=== PATIENT | female | born 1985 | race Caucasian/White ===

== ENCOUNTER 2024-10-30 14:02 | Emergency (ER) | payer BC, SELFPAY ==
[2024-10-30 14:06] VITALS: BP 108/71
--- NOTE | 2024-10-30 14:10 | ED.GENMED ---
History of Present Illness
<Marsha Davis CERTIFIED PROSTHETIST VICE PRESIDENT - Last Filed: 10/30/24 16:33>
General
Chief Complaint: Fever
Source: patient
Exam Limitations: none
Time Seen by Provider: 10/30/24 14:09
Nursing documentation reviewed up to this point in time: agreed with
History of Present Illness
History of Present Illness:
39 yo female 6 days post w normal uncomplicated vaginal delivery presents for fever/chills. Started 5 days ago she developed fever and chills and body aches which have been intermittent since, her last Motrin was at 10 AM today. Temp max was
99.7, main concern was the intermittent rigors and diaphoresis.
Pt tested positive for Covid 4 days ago after her son had Covid like symptoms (but never tested).
Pt denies vomiting, has felt nauseous intermittently. Has had a dry cough. Denies SOB, CP. Has mild 2/10 lower abdominal discomfort.
Has had normal vaginal bleeding, no malodorous discharge.
Denies UTI S & S
Last BM 4 days ago, does not feel constipated.
Had engorgement of breasts yesterday and thought she may have mastitis (she's had it in the past) but much better today. No redness or streaking of skin of breasts
Pt went to [place] where she delivered but the ED wait was too long. Had normal labs there per pt and (ED doctor)
Past History
<Marsha Davis CERTIFIED PROSTHETIST VICE PRESIDENT - Last Filed: 10/30/24 16:33>
Past History
ED Past Medical History: None
ED Past Surgical History: Other (wisdom teeth)
Social History
Tobacco: Non-smoker
Alcohol: None
Personal:
Living: with family
Review of Systems
<aMrsha Davis, CERTIFIED PROSTHETIST VICE PRESIDENT - Last Filed: 10/30/24 16:33>
Review of Systems
Allergies reviewed?: Yes
All Other Systems: ROS reviewed and negative except as documented in HPI and ROS
Phy Exam
<Marsha Davis, CERTIFIED PROSTHETIST VICE PRESIDENT - Last Filed: 10/30/24 16:33>
Physical Exam
Physical Exam:
GENERAL: No acute distress. A&Ox3.
CONSTITUTIONAL: Afebrile.
EYES: clear, conjunctivae normal
ENMT: moist mucus membranes, Pharynx nl
RESPIRATORY: Regular respirations, nonlabored, lungs clear.
CARDIOVASCULAR: Regular rate and rhythm, no murmurs, no rubs.
GI: Soft, nontender, normal BS
MUSCULOSKELETAL: Moves with ease. Well perfused.
SKIN: Warm, moist all, pink
Breasts: normal color, no redness, warmth, tenderness or abnormal swelling
PSYCH: Normal mood and affect. Well kept, interactive and appropriate
NEUROLOGIC: Awake, alert and oriented. No focal neurological deficits he works as a she has fever and chills
Course
<Marsha Davis, CERTIFIED PROSTHETIST VICE PRESIDENT - Last Filed: 10/30/24 16:33>
Orders/Labs/Results
Orders:
Orders
10/30/24 14:09
CONSULT Urgent
10/30/24 14:15
IV Insert/Care/Rem.- Treatment PRN
10/30/24 14:16
0.9% Sodium Chloride 1000 ml [Nss] 1,000 ml IV BOLUS
10/30/24 14:26
Complete Blood Count/With Diff Urgent
Comprehensive Metabolic Panel Urgent
Lactic Acid Q4H
Comment: CANCEL 2nd LACTIC ACID IF 1st LACTIC ACID IS LESS THAN 2
Blood Culture Q30M
TASHI Source: Blood/Venous
Specimen Description:
10/30/24 14:30
Urinalysis Reflex To Culture Urgent
Date Specimen was Collected: 10/30/24
Time Specimen was Collected: 14:27
Urine Microscopic Reflex Cult Urgent
Urine Culture Urgent
TASHI Source: U
Specimen Description:
Date Specimen was Collected: 10/30/24
Time Specimen was Collected: 14:27
10/30/24 14:38
COVID-19 Antigen Urgent
Source: Nasal Swab
Influenza A+B Rapid Molecular Urgent
TASHI Source: Nasal Swab
Specimen Description:
10/30/24 15:15
CR Chest - 2 Views Urgent
Comment:
Reason For Exam: post partem fever/chills
10/30/24 15:54
Add On- LAB Urgent
Tests Added?: urine culture
Acetaminophen [Tylenol] 650 mg PO NOW STA
10/30/24 16:05
Amoxicillin 875 mg/Clav 125 mg [Augmentin 875 mg/125 mg] 1 tablet PO NOW STA
10/30/24 16:10
0.9% Sodium Chloride 1000 ml [Nss] 1,000 ml IV BOLUS
10/30/24 16:11
CefTRIAXone [Rocephin] 1,000 mg IV NOW STA
10/30/24 16:25
Blood Culture Q30M
TASHI Source: Blood/Venous
Specimen Description:
Abnormal Lab Results
10/30/24 10/30/24 10/30/24
14:26 14:30 14:38
RBC 3.60 L 10^6/uL
(4.20-5.40)
Hgb 10.7 L g/dL
(12.0-16.0)
Hct 32.5 L %
(37.0-47.0)
MCHC 32.9 L g/dL
(33.0-37.0)
MPV 10.7 H fL
(7.4-10.4)
Abs Immat Gran (auto) 0.1 H 10^3/uL
(0-0.05)
Absolute Neuts (auto) 8.0 H 10^3/uL
(1.4-6.5)
Absolute Lymphs (auto) 0.6 L 10^3/uL
(1.2-3.4)
Absolute Monos (auto) 0.9 H 10^3/uL
(0.1-0.6)
Immature Gran % 0.6 H %
(0-0.5)
Neutrophils % 83.5 H %
(42.2-75.2)
Lymphocytes % 6.2 L %
(20.5-51.1)
Monocytes % 9.4 H %
(1.7-9.3)
Chloride 109 H mmol/L
(98-107)
Glucose 127 H mg/dl
(70-99)
Total Protein 6.2 L g/dl
(6.3-8.2)
Albumin 3.4 L g/dl
(3.5-5.0)
Urine Ketones 3+ A
(Negative)
Ur Occult Blood Reflex 4+ A
(Negative)
Leukocyte Esterase Rfl 3+ A
(Negative)
Urine WBC (Reflex) 30-40 A /HPF
(0-5)
Urine Bacteria (Reflex) Few A
(Negative)
Urine Albumin (Reflex) 1+ A
(Neg - Trace)
SARS-CoV-2 Antigen Positive A
(Negative)
10/30/24 14:26
10/30/24 14:26
Vital Signs
Initial and Last Documented VS:
Initial Vital Signs
Temp Pulse Resp BP Pulse Ox
97.8 F 101 18 108/71 97
10/30/24 14:06 10/30/24 14:06 10/30/24 14:06 10/30/24 14:06 10/30/24 14:06
Last Documented Vital Signs
Temp Pulse Resp BP Pulse Ox
98.4 F 96 16 110/64 99
10/30/24 15:30 10/30/24 16:45 10/30/24 16:45 10/30/24 16:45 10/30/24 16:45
Aquaculture Director consulted with Physician
Aquaculture Director consulted with physician?: Yes
Name of Physician Consulted: Jonnie
<Irving Cristina, DO - Last Filed: 10/30/24 18:50>
Orders/Labs/Results
Orders:
Orders
10/30/24 14:09
CONSULT Urgent
10/30/24 14:15
IV Insert/Care/Rem.- Treatment PRN
10/30/24 14:16
0.9% Sodium Chloride 1000 ml [Nss] 1,000 ml IV BOLUS
10/30/24 14:26
Complete Blood Count/With Diff Urgent
Comprehensive Metabolic Panel Urgent
Lactic Acid Q4H
Comment: CANCEL 2nd LACTIC ACID IF 1st LACTIC ACID IS LESS THAN 2
Blood Culture Q30M
TASHI Source: Blood/Venous
Specimen Description:
10/30/24 14:30
Urinalysis Reflex To Culture Urgent
Date Specimen was Collected: 10/30/24
Time Specimen was Collected: 14:27
Urine Microscopic Reflex Cult Urgent
Urine Culture Urgent
TASHI Source: U
Specimen Description:
Date Specimen was Collected: 10/30/24
Time Specimen was Collected: 14:27
10/30/24 14:38
COVID-19 Antigen Urgent
Source: Nasal Swab
Influenza A+B Rapid Molecular Urgent
TASHI Source: Nasal Swab
Specimen Description:
10/30/24 15:15
CR Chest - 2 Views Urgent
Comment:
Reason For Exam: post partem fever/chills
10/30/24 15:54
Add On- LAB Urgent
Tests Added?: urine culture
Acetaminophen [Tylenol] 650 mg PO NOW STA
10/30/24 16:05
Amoxicillin 875 mg/Clav 125 mg [Augmentin 875 mg/125 mg] 1 tablet PO NOW STA
10/30/24 16:10
0.9% Sodium Chloride 1000 ml [Nss] 1,000 ml IV BOLUS
10/30/24 16:11
CefTRIAXone [Rocephin] 1,000 mg IV NOW STA
10/30/24 16:25
Blood Culture Q30M
TASHI Source: Blood/Venous
Specimen Description:
Abnormal Lab Results
10/30/24 10/30/24 10/30/24
14:26 14:30 14:38
RBC 3.60 L 10^6/uL
(4.20-5.40)
Hgb 10.7 L g/dL
(12.0-16.0)
Hct 32.5 L %
(37.0-47.0)
MCHC 32.9 L g/dL
(33.0-37.0)
MPV 10.7 H fL
(7.4-10.4)
Abs Immat Gran (auto) 0.1 H 10^3/uL
(0-0.05)
Absolute Neuts (auto) 8.0 H 10^3/uL
(1.4-6.5)
Absolute Lymphs (auto) 0.6 L 10^3/uL
(1.2-3.4)
Absolute Monos (auto) 0.9 H 10^3/uL
(0.1-0.6)
Immature Gran % 0.6 H %
(0-0.5)
Neutrophils % 83.5 H %
(42.2-75.2)
Lymphocytes % 6.2 L %
(20.5-51.1)
Monocytes % 9.4 H %
(1.7-9.3)
Chloride 109 H mmol/L
(98-107)
Glucose 127 H mg/dl
(70-99)
Total Protein 6.2 L g/dl
(6.3-8.2)
Albumin 3.4 L g/dl
(3.5-5.0)
Urine Ketones 3+ A
(Negative)
Ur Occult Blood Reflex 4+ A
(Negative)
Leukocyte Esterase Rfl 3+ A
(Negative)
Urine WBC (Reflex) 30-40 A /HPF
(0-5)
Urine Bacteria (Reflex) Few A
(Negative)
Urine Albumin (Reflex) 1+ A
(Neg - Trace)
SARS-CoV-2 Antigen Positive A
(Negative)
10/30/24 14:26
10/30/24 14:26
Vital Signs
Initial and Last Documented VS:
Initial Vital Signs
Temp Pulse Resp BP Pulse Ox
97.8 F 101 18 108/71 97
10/30/24 14:06 10/30/24 14:06 10/30/24 14:06 10/30/24 14:06 10/30/24 14:06
Last Documented Vital Signs
Temp Pulse Resp BP Pulse Ox
98.4 F 96 16 110/64 99
10/30/24 15:30 10/30/24 16:45 10/30/24 16:45 10/30/24 16:45 10/30/24 16:45
<Marsha Davis, CERTIFIED PROSTHETIST VICE PRESIDENT - Last Filed: 10/30/24 16:33>
MDM/Problems Addressed
Differential Diagnosis Includes:
endometritis, UTI, puerperal fever, abscess
Covid, Flu, PNA
MDM/Problems Addressed:
39 yo female 6 days post w normal uncomplicated vaginal delivery presents for fever/chills. Started 5 days ago she developed fever and chills and body aches which have been intermittent since, her last Motrin was at 10 AM today. Temp max was
99.7, main concern was the intermittent rigors and diaphoresis.
Pt tested positive for Covid 4 days ago after her son had Covid like symptoms (but never tested).
Pt denies vomiting, has felt nauseous intermittently. Has had a dry cough. Denies SOB, CP. Has mild 2/10 lower abdominal discomfort.
Has had normal vaginal bleeding, no malodorous discharge.
Denies UTI S & S
Last BM 4 days ago, does not feel constipated.
Had engorgement of breasts yesterday and thought she may have mastitis (she's had it in the past) but much better today. No redness or streaking of skin of breasts
Afebrile 98.4 for this examiner
NAD
1500:
CBC with no clinically significant abnormality
CMP normal
COVID-positive
Influenza neg
Fever has been low-grade, no significant no malodorous vaginal discharge abdominal pain,, normal WBC, doubt endometritis, no indication for vaginal/cervical cultures
no significant trauma during delivery i.e. tears, so do not suspect any wound infection
Dr. Cristina in to evaluate
1630:
UA showing 30-40 WBCs, no squames, few bacteria, 3+ leukocytes, negative nitrites, 4+ blood and 0-2 RBCs. Okay
Will give a dose of IV Rocephin here and start patient on Augmentin is cover both UTI (which would also cover endometritis
Chest x-ray: NAD initially read by this examiner.
Patient is stable for discharge.
Dr. Cristina called and Rx into patient's pharmacy for Augmentin
<Marsha Davis, CERTIFIED PROSTHETIST VICE PRESIDENT - Last Filed: 10/30/24 16:33>
*Pulse Oximetry
SaO2: 97
Oxygen Mode of Delivery: Room air
<Irving Cristina, DO - Last Filed: 10/30/24 18:50>
*Pulse Oximetry
Patient hypoxic: no
*Critical Care Note
Total Time (30-74mins, 75-104mins- exclusive of procedures): Not Applicable
ED Attending Note
<Marsha Davis CERTIFIED PROSTHETIST VICE PRESIDENT - Last Filed: 10/30/24 16:33>
-
Portions of this chart may have been created with voice recognition software.� Occasional wrong word or��sound alike� substitutions may have occurred due to the inherent limitations of voice recognition software.
<Irving Cristina DO - Last Filed: 10/30/24 18:50>
ED Attending Note
Patient seen and examined by attending physician: Yes
I performed the substantive portion of visit, reviewed & personally made and approve the management plan that is documented in note by myself or RODRIGUEZ.: Yes
ED Attending Note:
Seen with CERTIFIED PROSTHETIST VICE PRESIDENT examined independently 39-year-old female status post vaginal delivery 4 days ago, older children with URI symptoms patient tested positive for COVID she is having fever and chills no mastitis symptoms no calf pain mild cough minimal
suprapubic tenderness
Suspect all due to COVID, other concern would be pneumonia DVT endometritis UTI
Chest x-ray pending blood culture ordered urinalysis noted urine culture pending reviewed with patient and spouse about empiric antibiotics versus watchful waiting
Discharge Plan
Departure
Patient Disposition: Home (Routine Discharge)
Date of Disposition: 10/30/24
Time of Disposition: 16:33
Patient with high blood pressure during this ER visit?: No
Condition: Good
Discharge Problem:
COVID-19, fever, UTI (urinary tract infection)
Instructions: Fever, Adult (DC), COVID-19 in adults (DC), Urinary tract infection (DC)
Prescriptions:
New
amoxicillin-pot clavulanate 875-125 mg tablet
1 tab PO BID Qty: 20 0RF
Referrals:
[facility] or your primary care provider [Other] - As needed
Activity Restrictions/Additional Instructions:
As we discussed, for your urinary tract infection, a prescription for Augmentin has been sent to your pharmacy start it this evening.
Tylenol ibuprofen as needed for fever
See your PCP or your [facility] C[facility] AIDE doctor for follow-up as needed
Interventions
Interventions:
*Risk Screen - Suicide Last Done: 10/30/24 14:06
*General Assessment Last Done: 10/30/24 14:30
*Neglect/Abuse Screening Last Done: 10/30/24 14:30
*Nursing Disposition Last Done: 10/30/24 17:06
ED- Neurological Assessment Last Done: 10/30/24 14:30
ED-Skin Assessment Last Done: 10/30/24 14:30
Discharge Date and Time
Discharge Date/Time: 10/30/24 17:07
Print Language: TAIWANESE
[2024-10-30] MEDS: NSS 1000 IV (14:29)
[2024-10-30 14:39] LABS: Hematocrit 32.5 % (37.0-47.0); Hemoglobin 10.7 g/dL (12.0-16.0); Mean Corp Hgb Conc. 32.9 g/dL (33.0-37.0); Mean Corpuscular Volume 90.3 fL (81.0-99.0); Nucleated Red Blood Cells % 0 %; Platelet Count 144 10^3/uL (130-400); Red Cell Dist. Width 13.9 % (11.5-14.5)
[2024-10-30 14:49] LABS: Urine Character Clear (Clear)
[2024-10-30 14:51] LABS: COVID-19 Antigen Positive (Negative)
[2024-10-30 14:54] LABS: ALT (SGPT) 27 U/L (0-35); AST (SGOT) 22 U/L (14-36); Albumin 3.4 g/dl (3.5-5.0); Alkaline Phosphatase 115 U/L (38-126); Blood Urea Nitrogen 9 mg/dl (7-17); Calcium 8.6 mg/dl (8.4-10.2); Carbon Dioxide 22 mmol/L (22-30); Chloride 109 mmol/L (98-107); Glucose 127 mg/dl (70-99); Potassium 3.5 mmol/L (3.5-5.1); Sodium 136 mmol/L (135-145); Total Protein 6.2 g/dl (6.3-8.2); eGFR > 60.00
[2024-10-30 15:30] VITALS: BP 107/64
[2024-10-30 15:32] LABS: Urine Red Blood Cell 0-2 /HPF (0-2); Urine Squamous Cell 0-2 /LPF (Few); Urine White Cell 30-40 /HPF (0-5)
[2024-10-30] MEDS: TYLENOL 650 MG PO (16:03)
[2024-10-30] MEDS: ROCEPHIN 1000 MG IV (16:32)
[2024-10-30 16:45] VITALS: BP 110/64
== END 2024-10-30 17:07 | disposition home or self-care (01) ==
LOC: EMR 14:02
PROVIDERS: Registered Nurse; EMERGENCY PHYSICIAN Emergency Medicine
DX: O98.53 Other viral diseases complicating the puerperium (principal); U07.1 COVID-19; O86.4 Pyrexia of unknown origin following delivery; O86.20 Urinary tract infection following delivery, unspecified; N39.0 Urinary tract infection, site not specified
CPT/HCPCS: 96374; 96361; 99284; 71046; 80053; 81003; 81015; 83605; 85025; 87040; 87086; 87502; 87811